=== PATIENT | female | born 1995 | race Caucasian/White ===

== ENCOUNTER 2017-03-31 08:00 | Outpatient (CLI) | payer MEDICAID ==
[2017-03-31 18:39] LABS: BILIRUBIN,URINE NEGATIVE (NEGATIVE); GLUCOSE, URINE (UA) NEGATIVE (NEGATIVE); KETONES,URINE (UA) NEGATIVE (NEGATIVE); LEUKOCYTE ESTERASE, URINE NEGATIVE (NEGATIVE); NITRITE,URINE NEGATIVE (NEGATIVE); OCCULT BLOOD,URINE MODERATE (NEGATIVE); PH,URINE 7.5 PH (5.0-7.5); PROTEIN,URINE NEGATIVE (NEGATIVE); UROBILINOGEN,URINE 0.2 (NORMAL) E.U./dL (NORMAL)
[2017-03-31 19:39] LABS: CLARITY,URINE CLEAR (CLEAR)
[2017-03-31 19:42] LABS: BACTERIA,URINE Few /HPF (None Seen); CASTS, URINE 0-2 Hyaline Casts /LPF; MUCUS,URINE Few Strands; SQUAMOUS EPITHELIAL CELL,UR FEW Squamous (<= Few)
== END 2017-03-31 08:01 | disposition home or self-care (01) ==
LOC: LAB.R 08:00
PROVIDERS: ATTEND Nurse Practitioner Family
DX: N39.0 Urinary tract infection, site not specified (principal)
CPT/HCPCS: 81001; 81003; 87086

== ENCOUNTER 2020-01-10 23:09 | Emergency (ER) | payer SELFPAY ==
--- NOTE | 2020-01-10 23:13 | ED Physician Documentation ---
PD HPI UPPER EXT INJURY - Stated complaint Stated Complaint: R HAND LAC - History obtained from History obtained from: Patient - History of Present Illness Location: Right, Finger (thuymb) Type of injury: Laceration (cut finger on metal edge of curtain otoniel while installing it.) Where injury occurred: Home Timing - onset: Today Timing - duration: Hours (1) Timing - details: Abrupt onset Worsened by: Moving, Palpating Associated symptoms: No: Weakness, Numbness Recently seen: Not recently seen Review of Systems Skin: reports: Laceration (s) Neurologic: denies: Focal weakness, Numbness, Near syncope PD PAST MEDICAL HISTORY - Past Medical History Past Medical History: No - Past Surgical History Past Surgical History: Yes - Present Medications Home Medications: Ambulatory Orders Medication Instructions Recorded Confirmed No Known Home Medications 05/24/13 01/10/20 - Allergies Allergies/Adverse Reactions: Allergies Allergy/AdvReac Type Severity Reaction Status Date / Time No Known Drug Allergies Allergy Verified 01/10/20 23:20 - Social History Does the pt smoke?: No Smoking Status: Never smoker Does the pt drink ETOH?: No Does the pt have substance abuse?: No PD ED PE NORMAL - Vitals Vital signs reviewed: Yes - General General: Alert and oriented X 3, No acute distress, Well developed/nourished - Derm Derm: Normal color, Warm and dry - Extremities Extremities: Other (right thumb with 1.5 cm laceration palmar aspect IP joint down to fatty tissue, but no deep structures. No FB. mild bleeding still. ) - Neuro Neuro: Alert and oriented X 3, No motor deficit, No sensory deficit Results - Vitals Vitals: Vital Signs - 24 hr 01/10/20 01/10/20 23:10 23:19 Temperature 36.5 C 36.5 C Heart Rate 95 95 Respiratory 16 16 Rate Blood Pressure 169/115 H 169/115 H O2 Saturation 98 98 Oxygen O2 Source Room air Procedures - Laceration (location) right thumb Length in cm: 1.5 Wound type: Curved Neurovascular status: Sensory intact, Motor intact, Vascular intact Tendon involvement: Tendon intact. No: Tendon Injury Anesthesia: Lidocaine 1% Wound Preparation: Irrigated copiously NS, Wound explored, To the base. No: FB identified Skin layer closure: Nylon, Interrupted, Size #-0 - enter number (4), Sutures - enter # (6) Other: Patient tolerated well, No complications, Neurovascular intact, Dressing applied, Tetanus UTD Complexity: Simple Departure - Departure Disposition: 01 Home, Self Care Clinical Impression: Thumb laceration Qualifiers: Encounter type: initial encounter Damage to nail status: without damage Foreign body presence: without foreign body Laterality: right Qualified Code(s): S61.011A - Laceration without foreign body of right thumb without damage to nail, initial encounter Condition: Stable Record reviewed to determine appropriate education?: Yes Instructions: ED Laceration Hand Follow-Up: Phill Barker ARNP [Primary Care Provider] - Comments: My suture care instructions: it is okay to wash and shower. Clean off the wound twice a day with soap and water, or peroxide and water. Apply some antibiotic ointment to it to keep it moist. Also to watch for signs of infection such as purulence, redness or increasing pain. Return to your primary care or the ER at the specified time for suture removal. Suture removal 9 or 10 days. Tylenol or ibuprofen as needed for pains. Good luck with your wedding in a couple of days. Have fun. Discharge Date/Time: 01/11/20 00:03
[2020-01-10 23:20] VITALS: BP 169/115
== END 2020-01-11 00:03 | disposition home or self-care (01) ==
LOC: ED 23:09
DX: S61.011A Laceration without foreign body of right thumb without damage to nail, initial encounter (principal); W26.8XXA Contact with other sharp object(s), not elsewhere classified, initial encounter; Y93.E9 Activity, other interior property and clothing maintenance; Y92.009 Unspecified place in unspecified non-institutional (private) residence as the place of occurrence of the external cause
CPT/HCPCS: 12001; 99281; 99282

== ENCOUNTER 2020-01-17 11:50 | Outpatient (CLI) | payer SELFPAY | END 2020-01-17 11:51 | disposition home or self-care (01) | LOC: COV 11:50 | PROVIDERS: ATTEND Family Medicine | DX: Z20.828 Contact with and (suspected) exposure to other viral communicable diseases (principal) ==

== ENCOUNTER 2021-07-28 12:30 | Emergency (ER) | payer MEDICAID, OTHER ==
[2021-07-28 12:51] LABS: BASOPHILS % (AUTO) 0.5 %; EOSINOPHILS # (AUTO) 0.2 10^3/uL (0.0-0.7); EOSINOPHILS % (AUTO) 2.3 %; HCT - HEMATOCRIT 46.1 % (37.0-47.0); HGB - HEMOGLOBIN 15.9 g/dL (12.0-16.0); LYMPHOCYTES # (AUTO) 0.5 10^3/uL (1.5-3.5); LYMPHOCYTES % (AUTO) 5.6 %; MEAN CORPUSCULAR HEMOGLOBIN 28.5 pg (27.0-31.0); MEAN CORPUSCULAR HGB CONC 34.5 g/dL (32.0-36.0); MEAN CORPUSCULAR VOLUME 82.8 fL (81.0-99.0); MEAN PLATELET VOLUME 9.5 fL (7.9-10.8); MONOCYTES # (AUTO) 0.9 10^3/uL (0.0-1.0); MONOCYTES % (AUTO) 10.3 %; NEUTROPHILS # (AUTO) 6.8 10^3/uL (1.5-6.6); NEUTROPHILS % (AUTO) 80.9 %; PLT - PLATELET COUNT 241 10^3/uL (130-450); RED BLOOD COUNT 5.57 10^6/uL (4.20-5.40); RED CELL DISTRIBUTION WIDTH 12.6 % (12.0-15.0); WHITE BLOOD COUNT 8.4 x10^3/uL (4.8-10.8)
[2021-07-28 12:58] LABS: BILIRUBIN,URINE NEGATIVE (NEGATIVE); CLARITY,URINE CLEAR (CLEAR); GLUCOSE, URINE (UA) NEGATIVE (NEGATIVE); KETONES,URINE (UA) NEGATIVE (NEGATIVE); LEUKOCYTE ESTERASE, URINE TRACE (NEGATIVE); NITRITE,URINE NEGATIVE (NEGATIVE); OCCULT BLOOD,URINE TRACE-INTA (NEGATIVE); PROTEIN,URINE 100 mg/dL (NEGATIVE); UROBILINOGEN,URINE 0.2 (NORMAL) E.U./dL (NORMAL)
[2021-07-28 12:59] LABS: HCG UR QUAL NEGATIVE
[2021-07-28] MEDS ORDERED: SODIUM CHLORIDE 0.9% 1,000 ML IV STA (13:01)
[2021-07-28] MEDS ORDERED: HYDROmorphone 1 MG/ML CARPUJECT IVP STA (13:01)
[2021-07-28] MEDS ORDERED: ONDANSETRON 4 MG/2 ML VIAL IVP STA (13:01)
--- NOTE | 2021-07-28 13:04 | ED Physician Documentation ---
History of Present Illness - Stated complaint Stated Complaint: ABD/BACK PAIN/VOMITTING - Chief complaint Chief Complaint: Abd Pain - Additonal information Additional information: 25-year-old female to male transgender individual who is currently on testosterone presents to the emergency department for evaluation of acute onset right lower quadrant abdominal pain, fever up to 101 and multiple episodes of nausea and vomiting. Pain and fever began this AM though he reports he has been nauseated for at least a few weeks. He is concerned he has appendicitis He has had "top surgery but not bottom." He retains his uterus and ovaries. No pertinent past surgical history of the abdomen otherwise. Takes no medications with the exception of testosterone. Endorses heavy tobacco and nicotine use moderate alcohol use. 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 - Present Medications Home Medications: Ambulatory Orders Medication Instructions Recorded Confirmed Ondansetron Odt [Zofran] 4 mg TL Q6H PRN #10 tablet 07/28/21 - Allergies Allergies/Adverse Reactions: Allergies Allergy/AdvReac Type Severity Reaction Status Date / Time No Known Drug Allergies Allergy Verified 07/28/21 12:36 - Social History Does the pt smoke?: No Smoking Status: Never smoker Does the pt drink ETOH?: No Does the pt have substance abuse?: No - Immunizations Immunizations are current?: Yes - POLST Patient has POLST: No PD ED PE NORMAL - General General: Alert and oriented X 3, No acute distress, Well developed/nourished - HEENT HEENT: Atraumatic, Moist mucous membranes - Neck Neck: Supple, no meningeal sign, No adenopathy - Cardiac Cardiac: RRR, No murmur, No gallop - Respiratory Respiratory: No respiratory distress, Clear bilaterally - Abdomen Abdomen: Normal bowel sounds, Soft. No: Non tender (Tenderness in the right lower quadrant without guarding or rebound. Negative McBurney's.) - Back Back: No CVA TTP, No spinal TTP - Derm Derm: Normal color, Warm and dry, No rash - Extremities Extremities: No deformity, No tenderness to palpate, Normal ROM s pain - Neuro Neuro: Alert and oriented X 3, claim approver 2-12 intact Eye Opening: Spontaneous Motor: Obeys Commands Verbal: Oriented GCS Score: 15 - Psych Psych: Normal mood Results - Vitals Vitals: Vital Signs - 24 hr 07/28/21 12:37 Temperature 36.5 C Heart Rate 100 Respiratory 16 Rate Blood Pressure 180/100 H O2 Saturation 98 Oxygen O2 Source Room air - Labs Labs: Laboratory Tests 07/28/21 07/28/21 07/28/21 12:40 12:42 12:42 WBC 8.4 RBC 5.57 H Hgb 15.9 Hct 46.1 MCV 82.8 MCH 28.5 MCHC 34.5 RDW 12.6 Plt Count 241 MPV 9.5 Neut # (Auto) 6.8 H Lymph # (Auto) 0.5 L [place] # (Auto) 0.9 Eos # (Auto) 0.2 Baso # (Auto) 0.0 Absolute Nucleated RBC 0.00 Nucleated RBC % 0.0 Sodium 136 Potassium 3.3 L Chloride 97 L Carbon Dioxide 28 Anion Gap 11.0 BUN 15 Creatinine 1.1 H Estimated GFR (MDRD) 61 L Glucose 101 H Calcium 9.0 Total Bilirubin 0.8 AST 54 H ALT 53 Alkaline Phosphatase 67 Total Protein 8.1 Albumin 4.8 Globulin 3.3 Albumin/Globulin Ratio 1.5 Lipase 43 Urine Color YELLOW Urine Clarity CLEAR Urine pH 7.0 Ur Specific Wray 1.020 Urine Protein 100 H Urine Glucose (UA) NEGATIVE Urine Ketones NEGATIVE Urine Occult Blood TRACE-INTA Urine Nitrite NEGATIVE Urine Bilirubin NEGATIVE Urine Urobilinogen 0.2 (NORMAL) Ur Leukocyte Esterase TRACE H Urine RBC 6-10 H Urine WBC 4-5 Ur Squamous Epith Cells FEW Squamous Urine Bacteria Rare Urine Mucus Few Strands Ur Microscopic Review INDICATED Urine Culture Comments INDICATED Urine HCG, Qual NEGATIVE - Rads (name of study) CTAP Radiology: Final report received (Bilateral nonobstructing nephroliths. No evidence for obstructive uropathy or acute perinephric inflammatory changes. Normal appearance of appendix. Mild circumferential wall thickening of the proximal ascending colon likely related to incomplete distention.) PD MEDICAL DECISION MAKING - ED course Complexity details: reviewed results, re-evaluated patient, considered differential, d/w patient, d/w family ED course: 25-year-old female to male transgender individual on testosterone presents the emergency department for evaluation of cute onset right lower quadrant abdominal pain, fevers and vomiting. Symptoms began abruptly this morning. His screening labs showed no leukocytosis. There is some mild electrolyte derangement with an elevated BUN and creatinine likely indicating mild dehydration in the ER. He was given a liter of crystalloid. He is also given Zofran with good resolution of the nausea and vomiting. A CT of the abdomen shows bilateral nonobstructing nephroliths. No obstructive uropathy is seen. There is no findings to consider infection in the urine. His appendix is normal. He does have a small incidental finding of an umbilical hernia. He also has some likely colitis in the ascending colon which accounts for the right upper quadrant pain but given the lack of Leukocytosis and patient preference will defer any antibiotics at this stage. Emergent return precautions were discussed for worsening symptoms. Departure - Departure Disposition: 01 Home, Self Care Clinical Impression: Bilateral nephrolithiasis, Right lower quadrant abdominal pain Umbilical hernia Qualifiers: Obstruction and gangrene presence: without obstruction or gangrene Qualified Code(s): K42.9 - Umbilical hernia without obstruction or gangrene Condition: Stable Record reviewed to determine appropriate education?: Yes Prescriptions: Ondansetron Odt [Zofran] 4 mg TL Q6H PRN #10 tablet PRN Reason: Nausea / Vomiting Comments: Guerrero bearden are seen today in the emergency department for pain that began suddenly in the right lower quadrant of your abdomen. The screening labs show that you are mildly dehydrated due to the vomiting. We did give you a liter of IV fluids which will help with this. We also gave you medication called Zofran to help for nausea. This has been sent to the [facility] in [place]. You can take it 2-3 times a day. I do recommend that you have frequent sips of clear liquids over the next [address] of your abdomen shows multiple small stones in your kidney that are not causing any obstruction. There is no infection in your urine but the stones likely account for the blood we saw on your urine. We do have an incidental finding of a small umbilical and hiatal hernia in your abdomen. These are fat- containing and do not pose any risk for strangulation of your bowel. The CT scan did not show findings of appendicitis. There were no inflammatory changes seen in your colon. Please discuss this ED visit with your primary doctor. In general I recommend that you take Tylenol or ibuprofen for discomfort. If over the next 24 to 48 hours you are having worsening symptoms, uncontrolled vomiting persistence of fevers then please return immediately to the ER.
[2021-07-28 13:05] LABS: ALBUMIN 4.8 g/dL (3.2-5.5); ALBUMIN/GLOBULIN RATIO 1.5 (1.0-2.2); BILIRUBIN,TOTAL 0.8 mg/dL (0.2-1.0); CREATININE 1.1 mg/dL (0.4-1.0); POTASSIUM 3.3 mmol/L (3.5-5.0); TOTAL PROTEIN 8.1 g/dL (6.7-8.2)
[2021-07-28 13:16] LABS: BACTERIA,URINE Rare /HPF (None Seen); MUCUS,URINE Few Strands; SQUAMOUS EPITHELIAL CELL,UR FEW Squamous (<= Few)
[2021-07-28] MEDS ORDERED: IOVERSOL 320 50 ML VIAL ONE ×2 (13:34→13:35)
[2021-07-28] MEDS ORDERED: IOVERSOL 320 50 ML VIAL IV ONE (14:10)
--- NOTE | 2021-07-28 14:16 | CT Report ---
PROCEDURE: Abdomen/Pelvis W INDICATIONS: RLQ abd pain with f/n/v CONTRAST: IV CONTRAST: Isovue 300 ml: 100 PO CONTRAST: *NO PO CONTRAST TECHNIQUE: After the administration of weight appropriate dose of intravenous contrast, 5 mm thick sections acqu ired from the diaphragms to the symphysis. 5 mm thick coronal and sagittal reformats were acquired. For radiation dose reduction, the following was used: automated exposure control, adjustment of mA and/or kV according to patient size. COMPARISON: None. FINDINGS: Image quality: Excellent. ABDOMEN: Lung bases: Lung bases are clear. Heart size is normal. Small hiatal hernia. Solid organs: Liver and spleen are normal in size and enhancement. Gallbladder is unremarkable Jesse iary system is non dilated. Pancreas enhances normally. No adrenal nodules. There are tiny, punctat e nonobstructing bilateral nephroliths measuring approximately 2 mm in size. No evidence for ureteral stones. Kidneys demonstrate normal size and enhancement, without hydronephrosis. No hydroureter. Peritoneum and bowel: There is minimal circumferential wall thickening of the proximal ascending col on without significant inflammatory changes. This may be related to incomplete distention. Otherwise, remaining of the visualized bowel loops demonstrate normal wall thickness and caliber. Normal appear ance of the appendix. No free fluid or air. Nodes and vessels: No retroperitoneal or mesenteric adenopathy by size criteria. Aorta and inferior vena cava are normal in size. Miscellaneous: Very small fat-containing umbilical hernia without acute inflammation. PELVIS: Genitourinary: Bladder wall thickness is normal. Reproductive organs appear unremarkable in appearan ce. Miscellaneous: No inguinal hernias or adenopathy. Bones: No suspicious bony lesions. No acute vertebral body compression fractures. IMPRESSION: 1. Bilateral nonobstructing nephroliths. No evidence for obstructive uropathy or acute perinephric in flammatory changes. No evidence for ureteral stones. 2. Normal appearance of the appendix. 3. Minimal circumferential wall thickening of the proximal ascending colon likely related to incomple te distention. Early colitis either inflammatory or infectious etiology may have a similar appearance ; however, no significant inflammatory changes noted in the region. 4. Small fat-containing umbilical hernia without acute inflammation. 5. Small hiatal hernia. Reviewed by: Sohan Worley MD on 07/28/2021 2:15 PM PDT Approved by: Sohan Worley MD on 07/28/2021 2:15 PM PDT Station ID: [id number]
[2021-07-28 14:40] VITALS: BP 140/90
== END 2021-07-28 14:38 | disposition home or self-care (01) ==
LOC: EDSEX 12:30 → ED 12:30
DX: N20.0 Calculus of kidney (principal); R10.31 Right lower quadrant pain; K42.9 Umbilical hernia without obstruction or gangrene
CPT/HCPCS: 36415; 74177; 80053; 81001; 81025; 83690; 85025; 87086; 96374; 96375; 99283; 99284; J1170; 81003

== ENCOUNTER 2023-05-30 00:59 | Emergency (ER) | payer MEDICAID | END 2023-05-30 01:05 | disposition left against medical advice (07) | LOC: ED 00:59 | DX: Z53.21 Procedure and treatment not carried out due to patient leaving prior to being seen by health care provider (principal) ==